=== PATIENT | male | born 1975 | race Hispanic/Latino ===

== ENCOUNTER 2017-05-30 20:01 | Emergency (ER) | payer SELFPAY ==
[2017-05-30] MEDS ORDERED: ACETAMINOPHEN-CODEINE 300/30MG TAB ONE (20:41)
[2017-05-30] MEDS ORDERED: CEFTRIAXONE SODIUM 1 GM ONE (21:01)
[2017-05-30] MEDS ORDERED: BENZONATATE 100 MG CAPSULE PO ONE (21:48)
== END 2017-05-30 20:56 | disposition home or self-care (01) ==
LOC: EDH 20:01
DX: S63.591A Other specified sprain of right wrist, initial encounter (principal); Z72.0 Tobacco use; W11.XXXA Fall on and from ladder, initial encounter; Y93.89 Activity, other specified; Y92.89 Other specified places as the place of occurrence of the external cause; Y99.8 Other external cause status
CPT/HCPCS: 73110; J0696

== ENCOUNTER 2018-07-19 17:10 | Emergency (ER) | payer SELFPAY ==
[2018-07-19] MEDS ORDERED: HYDROCODONE/ACETAMINOPHEN 5/325 MG TAB ONE (19:19)
== END 2018-07-19 19:45 | disposition home or self-care (01) ==
LOC: EDH 17:10
DX: S57.81XA Crushing injury of right forearm, initial encounter (principal); S62.398D Other fracture of other metacarpal bone, subsequent encounter for fracture with routine healing; Z72.0 Tobacco use; W23.0XXA Caught, crushed, jammed, or pinched between moving objects, initial encounter; Y93.89 Activity, other specified; Y92.69 Other specified industrial and construction area as the place of occurrence of the external cause; Y99.8 Other external cause status
CPT/HCPCS: 73090; 73130

== ENCOUNTER 2018-12-26 14:05 | Emergency (ER) | payer OTHER ==
[2018-12-26 14:44] LABS: ABG BASE EXCESS 0.8 mmol/L (-2.0-3.0); ABG HCO3 24.9 mmol/L (21.0-28.0); ABG OXYGEN SATURATION 97.5 % (95.0-99.0); ABG PCO2 38 mmHg (35-48)
[2018-12-26 14:53] LABS: BASOPHILS % (AUTO) 1.2 % (0.0-5.0); EOSINOPHILS % (AUTO) 2.7 % (0.0-8.0); HEMATOCRIT 45.5 % (42-54); LYMPHOCYTES % (AUTO) 17.5 % (21.0-51.0); MEAN CORPUSCULAR HEMOGLOBIN 33.1 pg (27.0-33.0); MEAN CORPUSCULAR VOLUME 94.6 fL (79-99); MONOCYTES % (AUTO) 7.5 % (3.0-13.0); NEUTROPHILS % (AUTO) 71.1 % (40.0-77.0); PLATELET COUNT (AUTO) 331 K/uL (130-400); RED BLOOD CELL COUNT(AUTO) 4.81 MIL/uL (4.50-6.20); RED CELL DISTRIBUTION WIDTH 12.8 % (11.0-15.5); WHITE BLOOD COUNT (AUTO) 12.4 K/uL (4.8-10.8)
[2018-12-26 15:03] LABS: POTASSIUM 3.7 mmol/L (3.5-5.1)
[2018-12-26 15:07] LABS: ALBUMIN 4.4 g/dL (3.5-5.0); BILIRUBIN,TOTAL 0.5 mg/dL (0.2-1.0); TOTAL PROTEIN, SERUM 7.8 g/dL (6.0-8.3)
[2018-12-26] MEDS ORDERED: ALBUTEROL SULFATE 0.083% 2.5 MG/3 ML INH IH ONE (15:47)
== END 2018-12-26 17:41 | disposition home or self-care (01) ==
LOC: EDH 14:05
DX: Z57.5 Occupational exposure to toxic agents in other industries (principal); Z72.0 Tobacco use; R05 Cough; R11.10 Vomiting, unspecified
CPT/HCPCS: 36415; 36600; 71046; 80053; 82803; 85025; 93005; 94640

== ENCOUNTER 2019-08-30 13:09 | Emergency (ER) | payer OTHER ==
[2019-08-30 14:08] LABS: BASOPHILS % (AUTO) 0.8 % (0.0-5.0); EOSINOPHILS % (AUTO) 4.5 % (0.0-8.0); HEMATOCRIT 44.8 % (42-54); LYMPHOCYTES % (AUTO) 19.9 % (21.0-51.0); MEAN CORPUSCULAR HEMOGLOBIN 33.1 pg (27.0-33.0); MEAN CORPUSCULAR VOLUME 94.3 fL (79-99); MONOCYTES % (AUTO) 7.4 % (3.0-13.0); NEUTROPHILS % (AUTO) 66.7 % (40.0-77.0); PLATELET COUNT (AUTO) 286 K/uL (130-400); RED BLOOD CELL COUNT(AUTO) 4.75 MIL/uL (4.50-6.20); WHITE BLOOD COUNT (AUTO) 13.5 K/uL (4.8-10.8)
[2019-08-30 14:20] LABS: CREATININE 0.9 mg/dL (0.5-1.5); INR 0.88 (0.85-1.15); PARTIAL THROMBOPLASTIN TIME 29.1 SEC (26.3-35.5); POTASSIUM 3.8 mmol/L (3.5-5.1); PROTHROMBIN TIME 9.5 SEC (9.6-11.6)
[2019-08-30 14:25] LABS: BILIRUBIN,TOTAL 0.5 mg/dL (0.2-1.0); TOTAL PROTEIN, SERUM 7.5 g/dL (6.0-8.3)
== END 2019-08-30 16:10 | disposition home or self-care (01) ==
LOC: EDH 13:09
DX: K92.2 Gastrointestinal hemorrhage, unspecified (principal)
CPT/HCPCS: 36415; 74176; 80053; 82270; 85025; 85610; 85730

== ENCOUNTER 2021-10-15 19:18 | Emergency (ER) | payer OTHER ==
[~2021-10-15] VITALS: Ht 180.3 cm; Wt 102.1 kg
[2021-10-15] MEDS ORDERED: IBUP-2070 PO (19:26)
[2021-10-15] MEDS ORDERED: FAMOTIDINE 20MG TAB PO ONE (19:30)
[2021-10-15] MEDS ORDERED: DIPHENHYDRAMINE HCL 25 MG CAPSULE PO ONE (19:30)
[2021-10-15] MEDS ORDERED: IBUPROFEN 600 MG TABLET PO ONE (19:30)
[2021-10-15 19:34] VITALS: BP 131/69
== END 2021-10-15 20:05 | disposition home or self-care (01) ==
LOC: EDH 19:18
DX: T63.441A Toxic effect of venom of bees, accidental (unintentional), initial encounter (principal); R06.02 Shortness of breath; Y92.89 Other specified places as the place of occurrence of the external cause
CPT/HCPCS: 99283; Q0163

== ENCOUNTER 2024-01-05 12:39 | Emergency (ER) | payer SELFPAY ==
[~2024-01-05] VITALS: Ht 180.3 cm; Wt 101.2 kg
[~2024-01-05 12:39] MED LIST: IBUP-2070 PO
[2024-01-05 13:27] LABS: APPEARANCE,URINE CLEAR (CLEAR); BILIRUBIN,URINE NEGATIVE (NEGATIVE); COLOR,URINE YELLOW (YELLOW); GLUCOSE, URINE (UA) NEGATIVE (NEGATIVE); KETONES,URINE 5 mg/dL (NEGATIVE); LEUKOCYTE ESTERASE ,URINE NEGATIVE Leu/uL (NEGATIVE); NITRATE,URINE NEGATIVE (NEGATIVE); OCCULT BLOOD,URINE NEGATIVE (NEGATIVE); PH,URINE 5.5 (5.0-8.0); PROTEIN,URINE 20 mg/dL (NEGATIVE); UROBILINOGEN,URINE 0.2 mg/dL (0.2-1.0)
[2024-01-05 13:28] LABS: ADD UA MICROSCOPIC YES
[2024-01-05] MEDS: DICYCLOMINE 20MG (10MG/ML) AMP IM ONE (13:29)
[2024-01-05] MEDS: ondanSETRON 4MG INJ IVP ONE (13:29)
[2024-01-05 13:30] LABS: BASOPHILS # (AUTO) 0.08 K/uL (0.00-0.20); BASOPHILS % (AUTO) 0.5 % (0.0-5.0); EOSINOPHILS # (AUTO) 0.33 K/uL (0.00-0.70); HEMATOCRIT 46.8 % (42-54); IMMATURE GRANULOCYTE ABSOLUTE 0.09 K/uL (0-1); LYMPHOCYTES # (AUTO) 1.9 K/uL (1.0-4.8); LYMPHOCYTES % (AUTO) 11.7 % (21.0-51.0); MEAN CORPUSCULAR HEMOGLOBIN 33.1 pg (27.0-33.0); MEAN CORPUSCULAR HGB CONC 35.3 g/dL (32.0-36.0); MONOCYTES % (AUTO) 5.9 % (3.0-13.0); NEUTROPHILS % (AUTO) 79.4 % (40.0-77.0); PLATELET COUNT (AUTO) 283 K/uL (130-400); RED BLOOD CELL COUNT(AUTO) 4.98 MIL/uL (4.50-6.20); RED CELL DISTRIBUTION WIDTH 11.9 % (11.0-15.5); WHITE BLOOD COUNT (AUTO) 16.4 K/uL (4.8-10.8)
[2024-01-05] MEDS: 0.9%NACL 1000ML 1,000 ML IV ONE (13:30)
[2024-01-05 13:31] LABS: MUCUS,URINE FEW LPF (None Seen); RBC,URINE 0-1 /HPF (0-1); SQUAMOUS EPITHELIAL CELL,UR RARE /HPF (0-2)
[2024-01-05 13:38] LABS: CREATININE 0.9 mg/dL (0.5-1.3)
[2024-01-05] MEDS ORDERED: METR-172 PO (14:15)
[2024-01-05] MEDS ORDERED: DICY20TA2 PO (14:15)
[2024-01-05 14:42] VITALS: BP 138/79; PULSE 68; RESP 16; TEMP 98; O2SAT 99
== END 2024-01-05 15:04 | disposition home or self-care (01) ==
LOC: EDH 12:39
DX: A05.9 Bacterial foodborne intoxication, unspecified (principal); K52.9 Noninfective gastroenteritis and colitis, unspecified; R10.84 Generalized abdominal pain; Z79.899 Other long term (current) drug therapy
CPT/HCPCS: 99284; 96374; 96361; 80048; 85025; 81001; 36415; 96372; J2405; J7030; J0500